=== PATIENT | male | born 1970 | race Caucasian/White ===

== ENCOUNTER → 2018-03-15 | Day surgery (SDC) | payer BC ==
[~2018-03-15] MED LIST: ACETAMINOPHEN 1,000 MG/100 ML BTL IV ONE; BUPIVACAINE 0.5% W/EPI MPF 30 ML VIAL IVP ONE; CLINDAMYCIN PHOS/D5W 900MG 900 MG/50 ML BAG IVPB ONE; DEXAMETHASONE 4 MG/ML 1ML VIAL IVP ONE; FENTANYL PF 100MCG/2ML VIAL IV ONE; LIDOCAINE 2% MDV (20MG/ML) 20ML VIAL IV ONE; METHYLPREDNISOLONE 40MG/VIAL IM ONE; MIDAZOLAM HCL 2MG/2ML VIAL IV ONE; MORPHINE SULFATE 4 MG/ML VIAL IVP ONE; MORPHINE SULFATE 4 MG/ML VIAL ONE; ONDANSETRON HCL IV 4 MG/2 ML VIAL IVP ONE; PROPOFOL 10 MG/ML VIAL IV ONE; SEVOFLURANE 250 ML INH ONE
--- NOTE | 2018-03-16 11:40 | Operative Note ---
DATE OF SURGERY: 03/15/2018 PREOPERATIVE DIAGNOSIS: Internal derangement of the left knee. POSTOPERATIVE DIAGNOSES: 1. Large chondral defect in the notch with loose marginal unstageable cartilage. 2. Loose bodies of articular cartilage. 3. Grade 3 chondromalacia of medial femoral condyle. 4. Small degenerative tear involving the lateral horn of the lateral meniscus. OPERATION: 1. Left knee arthroscopy with partial lateral meniscectomy. 2. Left knee arthroscopy with chondroplasty of the notch and medial compartment. Staff Surgeon: Santos Cano MD Anesthesia: General. Preparation: Chloraprep. Individual Considerations: None. PROCEDURE: The patient was taken to the operating room and placed supine on the operating room table. The patient had a successful induction with general anesthetic. The left lower extremity was prepped and draped in the usual fashion. The patient had a superolateral inflow cannula placed. Skin was infiltrated with 0.5% Marcaine with epinephrine prior. A clear effusion was drained. The knee was inflated with normal saline. An inferomedial and an inferolateral lateral portal were made in a similar fashion. The arthroscope was introduced through the inferolateral portal up into the pouch. There were cartilaginous loose bodies which were irrigated out. The patella looked good but the notch had a very large ulcer about the size of an elongated silver dollar with a loose peeling cartilage on either side. This was debrided back to a stable cartilage periphery but there are central areas down to bone. After irrigation, I went to the medial side. He had grade 3 change throughout the medial femoral condyle from full extension to about 60 degrees of flexion centrally in the weightbearing area. This was smoothed off with a shaver but luckily not down to bone. The medial meniscus and medial articular cartilage were normal. The notch, the cruciates were normal laterally. The articular cartilage as normal but he had a small central tear which is degenerative of the lateral horn of the lateral meniscus, which was smoothed off with a shaver. After irrigation, portals were closed with alyse, and 20 mL of 0.5% Marcaine with epinephrine along with 80 mg of Depo-Medrol were injected into the knee. A sterile bulky compressive dressing was applied. The patient tolerated the procedure well. Needle and sponge counts were correct. Estimated blood loss was minimal. He was taken back to recovery in good condition. There were no complications. [facility]ITALMaureen
== END | disposition home or self-care (01) ==
LOC: SUR 11:02
PROVIDERS: ATTEND Orthopaedic Surgery
DX: S83.282A Other tear of lateral meniscus, current injury, left knee, initial encounter (principal); M24.10 Other articular cartilage disorders, unspecified site; M94.262 Chondromalacia, left knee; M23.42 Loose body in knee, left knee; Z86.711 Personal history of pulmonary embolism; Z79.01 Long term (current) use of anticoagulants; E03.9 Hypothyroidism, unspecified; G47.33 Obstructive sleep apnea (adult) (pediatric)
CPT/HCPCS: 29881; 01400; J2405; J3010; J3490; J2270; J1030